=== PATIENT | female | born 2005 | race Caucasian/White ===

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

== ENCOUNTER 2025-01-15 16:33 | Emergency (ER) | payer OTHER ==
--- NOTE | 2025-01-15 17:50 | ED ---
General Adult HPI - General Chief complaint: Fall Stated complaint: fell down stairs Time Seen by Provider: 01/15/25 17:41 Source: patient, RN notes reviewed Mode of arrival: ambulatory Limitations: no limitations - History of Present Illness Initial comments: Patient is a 19-year-old female present to the emergency department with concern for pain to her tailbone. Patient states she was walking on the steps 2 days ago and fell onto her tailbone. Patient has had discomfort there since that time. No head injury or loss of consciousness. No other head or neck discomfort. No weakness. No loss of sensation. No incontinence or retention of bowel or bladder. Patient states pain is the worst when she tries to sit on her tailbone. Patient denies possible . - Related Data Previous Rx's Medication Instructions Recorded Sulfamethox-Tmp 200-40Mg/5Ml 13.5 ml PO Q12HR 14 Days ml 10/05/14 [Bactrim Oral Susp] Allergies Allergy/AdvReac Type Severity Reaction Status Date / Time No Known Allergies Allergy Verified 01/15/25 17:37 Review of Systems ROS Statement: Those systems with pertinent positive or pertinent negative responses have been documented in the HPI. ROS Other: All systems not noted in ROS Statement are negative. Constitutional: Denies: fever Eyes: Denies: as per HPI ENT: Denies: throat pain Respiratory: Denies: dyspnea Cardiovascular: Denies: chest pain Gastrointestinal: Denies: abdominal pain Past Medical History Past Medical History: No Reported History History of Any Multi-Drug Resistant Organisms: None Reported Past Surgical History: Hernia Repair Past Psychological History: No Psychological Hx Reported Smoking Status: Never smoker Past Alcohol Use History: None Reported Past Drug Use History: None Reported General Exam Limitations: no limitations General appearance: alert, in no apparent distress Head exam: Present: atraumatic Eye exam: Present: normal appearance Neck exam: Present: normal inspection. Absent: tenderness Respiratory exam: Present: normal lung sounds bilaterally Cardiovascular Exam: Present: regular rate, normal rhythm GI/Abdominal exam: Present: soft. Absent: tenderness Extremities exam: Present: normal inspection, full ROM. Absent: tenderness Back exam: Present: tenderness (Lower sacral region) Neurological exam: Present: alert. Absent: motor sensory deficit Psychiatric exam: Present: normal affect, normal mood Skin exam: Present: normal color Course Vital Signs 01/15/25 17:34 Temperature 97.8 F Pulse Rate 98 Respiratory 18 Rate Blood Pressure 176/76 O2 Sat by Pulse 99 Oximetry Medical Decision Making - Medical Decision Making Was pt. sent in by a medical professional or institution (, HERRERA, DIRECTOR MARKET RESEARCH, urgent care, hospital, or retirement...) When possible be specific @ -No Did you speak to anyone other than the patient for history (EMS, parent, family, police, friend...)? What history was obtained from this source @ -No Did you review nursing and triage notes (agree or disagree)? Why? @ -I reviewed and agree with nursing and triage notes Were old charts reviewed (outside hosp., previous admission, EMS record, old EKG, old radiological studies, urgent care reports/EKG's, retirement records)? Report findings @ -No old charts were reviewed Differential Diagnosis (chest pain, altered mental status, abdominal pain women, abdominal pain men, vaginal bleeding, weakness, fever, dyspnea, syncope, hea dache, dizziness, GI bleed, back pain, seizure, CVA, palpatations, mental health, musculoskeletal)? @ -Differential Musculoskeletal Muscular strain, contusion, ligament sprain, fracture, arthritis, septic arthritis, bursitis, cellulitis, muscle spasm, nerve compression, DVT, arterial occlusion, herpes zoster, electrolyte abnormality, tumor.... This is not meant to be in all inclusive list EKG interpreted by me (3pts min.). @ -As above X-rays interpreted by me (1pt min.). @ -Sacral x-ray without definitive displaced fracture CT interpreted by me (1pt min.). @ -None done U/S interpreted by me (1pt. min.). @ -None done What testing was considered but not performed or refused? (CT, X-rays, U/S, labs)? Why? @ -None What meds were considered but not given or refused? Why? @ -None Did you discuss the management of the patient with other professionals (professionals i.e. HERRERA Bull, DIRECTOR MARKET RESEARCH, lab, RT, psych nurse, social worker delinquency prevention, steam box operator, teacher, aviation ordnance officer, case planner)? Give summary @ -No Was smoking cessation discussed for >3mins.? @ -No Was critical care preformed (if so, how long)? @ -No Were there social determinants of health that impacted care today? How? (Homelessness, low income, unemployed, alcoholism, drug addiction, transportation, low edu. Level, literacy, decrease access to med. care, half-way, rehab)? @ -No Was there de-escalation of care discussed even if they declined (Discuss DNR or withdrawal of care, Hospice)? DNR status @ -No What co-morbidities impacted this encounter? (DM, HTN, Smoking, COPD, CAD, Cancer, CVA, ARF, Chemo, Hep., AIDS, mental health diagnosis, sleep apnea, morbid obesity)? @ -None Was patient admitted / discharged? Hospital course, mention meds given and route, prescriptions, significant lab abnormalities, going to OR and other pertinent info. @ -Patient presents with fall and sacral pain. No definitive fracture on x- ray. Patient reevaluated and updated. Undiagnosed new problem with uncertain prognosis? @ -No Drug Therapy requiring intensive monitoring for toxicity (Heparin, Nitro, Insulin, Cardizem)? @ -No Were any procedures done? @ -No Diagnosis/symptom? @ -Sacral contusion Acute, or Chronic, or Acute on Chronic? @ -Acute Uncomplicated (without systemic symptoms) or Complicated (systemic symptoms)? @ -Default Side effects of treatment? @ -No Exacerbation, Progression, or Severe Exacerbation? @ -No Poses a threat to life or bodily function? How? (Chest pain, USA, DC, pneumonia, PE, COPD, DKA, ARF, appy, cholecystitis, CVA, Diverticulitis, Homicidal, Suicidal, threat to staff... and all critical care pts) @ -No Disposition Clinical Impression: Sacral contusion Disposition: HOME SELF-CARE Condition: Stable Instructions (If sedation given, give patient instructions): Sacral Fracture (ED) Additional Instructions: [id number] Tylenol or Motrin as needed. Use inflatable doughnut to sit on. Ice to affected area. Please follow-up with primary care physician in the next couple of days for recheck. Return for increased pain, weakness, loss of control of bowel or bladder, worsening symptoms or other concerns. Is patient prescribed a controlled substance at d/c from ED?: No Referrals: Reji Lockwood MD [Primary Care Provider] - 1-2 days Time of Disposition: 19:15
--- NOTE | 2025-01-15 18:09 | XR ---
EXAMINATION TYPE: XR sacrum coccyx DATE OF EXAM: 01/15/2025 6:00 PM COMPARISON: CT abdomen and pelvis 2016 CLINICAL INDICATION: Female, 19 years old with history of fall; PHH, pain TECHNIQUE: XR sacrum coccyx, examined in frontal and lateral projections. FINDINGS: There is no evidence of acute displaced fracture in the sacrum or coccyx. Sacral alar maint ained bilaterally. There is no soft tissue abnormality. No abnormal calcifications are present. IMPRESSION: No acute displaced fracture in sacrum or coccyx. [facility], , 01/15/2025 6:06 PM
[2025-01-15] MEDS: ACET/COD 300 MG/30 MG STARTER PACK 6 TAB BTL PO STA (19:39)
[2025-01-15] MEDS: KETOROLAC 15 MG/ML 1 ML VIAL IM STA (19:39)
[2025-01-15 19:45] VITALS: BP 132/74; PULSE 75; RESP 16; TEMP 98.6
== END 2025-01-15 19:45 | disposition home or self-care (01) ==
LOC: EC 16:33
DX: S30.0XXA Contusion of lower back and pelvis, initial encounter (principal); W10.8XXA Fall (on) (from) other stairs and steps, initial encounter
CPT/HCPCS: 72220; 99283; 96372; J1885

== ENCOUNTER 2025-01-19 13:42 | Emergency (ER) | payer OTHER ==
--- NOTE | 2025-01-19 14:09 | ED ---
Chest Pain HPI - General Source: patient, RN notes reviewed Mode of arrival: ambulatory Limitations: no limitations <Leticia Noriega - Last Filed: 01/19/25 14:07> - General Source: patient, RN notes reviewed, old records reviewed Mode of arrival: ambulatory Limitations: no limitations - History of Present Illness MD Complaint: chest pain -: days(s) Onset: during rest Pain Location: substernal, left chest Pain Radiation: none Severity: mild Severity scale (1-10): 3 Quality: tightness Consistency: intermittent Improves With: nothing Worsens With: nothing Anginal Symptoms: dyspnea Other Symptoms: palpitations Treatments Prior to Arrival: none <Stephen Marie - Last Filed: 01/19/25 18:47> - General Stated Complaint: Chest pain,weakness Time Seen by Provider: 01/19/25 14:08 - History of Present Illness Initial Comments: Quick note: 19-year-old female with a past medical history significant of focal segmental glomerulosclerosis presenting the ER for evaluation of chest pain. Patient states she was recently started on steroids 60 mg by nephrology. She states today she started to feel her pulse in her neck and chest pain. She reports her face feels red and hot. She also reports being hypertensive at home. Mild shortness of breath. (Leticia Noriega) This is a 19 female to the ER for evaluation. Patient has history of renal disease coming in for chest pain today. Patient is newly on steroids for kidney disease and elevated blood pressures at home but mainly concern is chest pain with occasional shortness of breath no exertional dyspnea no recent fevers cough or congestion no other complaints (Stephen Marie) - Related Data Previous Rx's Medication Instructions Recorded Sulfamethox-Tmp 200-40Mg/5Ml 13.5 ml PO Q12HR 14 Days ml 10/05/14 [Bactrim Oral Susp] Allergies Allergy/AdvReac Type Severity Reaction Status Date / Time No Known Allergies Allergy Verified 01/19/25 14:52 Review of Systems ROS Other: All systems not noted in ROS Statement are negative. <Leticia Noriega - Last Filed: 01/19/25 14:07> ROS Other: All systems not noted in ROS Statement are negative. <Stephen Marie - Last Filed: 01/19/25 18:47> ROS Statement: Those systems with pertinent positive or pertinent negative responses have been documented in the HPI. Past Medical History Past Medical History: No Reported History History of Any Multi-Drug Resistant Organisms: None Reported Past Surgical History: Hernia Repair Past Psychological History: No Psychological Hx Reported Smoking Status: Never smoker Past Alcohol Use History: None Reported Past Drug Use History: None Reported <Leticia Noriega - Last Filed: 01/19/25 14:07> General Exam <Leticia Noriega - Last Filed: 01/19/25 14:07> General appearance: alert, in no apparent distress Head exam: Present: atraumatic, normocephalic, normal inspection Eye exam: Present: normal appearance, PERRL, EOMI. Absent: scleral icterus, conjunctival injection, periorbital swelling ENT exam: Present: normal exam, mucous membranes moist Neck exam: Present: normal inspection. Absent: tenderness, meningismus, lymphadenopathy Respiratory exam: Present: normal lung sounds bilaterally. Absent: respiratory distress, wheezes, rales, rhonchi, stridor Cardiovascular Exam: Present: regular rate, normal rhythm, normal heart sounds. Absent: systolic murmur, diastolic murmur, rubs, gallop, clicks GI/Abdominal exam: Present: soft, normal bowel sounds. Absent: distended, tenderness, guarding, rebound, rigid Extremities exam: Present: normal inspection, full ROM, normal capillary refill. Absent: tenderness, pedal edema, joint swelling, calf tenderness Back exam: Present: normal inspection Neurological exam: Present: alert, oriented X3, CN II-XII intact Psychiatric exam: Present: normal affect, normal mood Skin exam: Present: warm, dry, intact, normal color. Absent: rash <Stephen Marie - Last Filed: 01/19/25 18:47> - General Exam Comments Initial Comments: Visual Physical Exam Vital signs reviewed General: Well-appearing, nontoxic, no acute distress. Head: Normocephalic, atraumatic Eyes: PERRLA, EOMI ENT: Airway patent Chest: Nonlabored breathing Skin: No visual rash, normal skin tone Neuro: Alert and oriented 3 Musculoskeletal: No gross abnormalities (Leticia Noriega) Course <Stephen Marie - Last Filed: 01/19/25 18:47> Vital Signs 01/19/25 01/19/25 14:00 18:01 Temperature 98.1 F Pulse Rate 89 74 Respiratory 17 16 Rate Blood Pressure 146/87 124/72 O2 Sat by Pulse 100 99 Oximetry - Reevaluation(s) Reevaluation #1: 01/19/25 18:46 Medical records reviewed (Stephen Marie) Reevaluation #2: 01/19/25 18:46 Patient symptoms unchanged (Stephen Marie) Reevaluation #3: 01/19/25 18:46 Patient informed of results questions answered (Stephen Marie) Reevaluation #4: Was pt. sent in by a medical professional or institution (, HERRERA, RING CONDUCTOR, urgent care, hospital, or skilled nursing...) When possible be specific @ -no Did you speak to anyone other than the patient for history (EMS, parent, family, police, friend...)? What history was obtained from this source @ -no Did you review nursing and triage notes (agree or disagree)? Why? @ -agree Are old charts reviewed (outside hosp., previous admission, EMS record, old EKG, old radiological studies, urgent care reports/EKG's, skilled nursing records)? Re port findings @ -yes Differential Diagnosis (chest pain, altered mental status, abdominal pain women, abdominal pain men, vaginal bleeding, weakness, fever, dyspnea, syncope, headache, dizziness, GI bleed, back pain, seizure, CVA, palpatations, mental health, musculoskeletal)? @ -prior EKG interpreted by me (3pts min.). @ -yes X-rays interpreted by me (1pt min.). @ -yes negative for acute disease CT interpreted by me (1pt min.). @ -no U/S interpreted by me (1pt. min.). @ -no What testing was considered but not performed or refused? (CT, X-rays, U/S, labs)? Why? @ -none What meds were considered but not given or refused? Why? @ -none Did you discuss the management of the patient with other professionals (professionals i.e. HERRERA Bull, RING CONDUCTOR, lab, RT, psych nurse, social service technician, battery checker, teacher, loan officer assistant, case finisher)? Give summary @ -no Was smoking cessation discussed for >3mins.? @ -no Was critical care preformed (if so, how long)? @ -no Were there social determinants of health that impacted care today? How? (Homelessness, low income, unemployed, alcoholism, drug addiction, transportation, low edu. Level, literacy, decrease access to med. care, residential, rehab)? @ -none Was there de-escalation of care discussed even if they declined (Discuss DNR or withdrawal of care, Hospice)? DNR status @ -no What co-morbidities impacted this encounter? (DM, HTN, Smoking, COPD, CAD, Cancer, CVA, ARF, Chemo, Hep., AIDS, mental health diagnosis, sleep apnea, morbid obesity)? @ -none Was patient admitted / discharged? Hospital course, mention meds given and route, prescriptions, significant lab abnormalities, going to OR and other pertinent info. @ - Undiagnosed new problem with uncertain prognosis? @ -no Drug Therapy requiring intensive monitoring for toxicity (Heparin, Nitro, Insulin, Cardizem)? @ -no Were any procedures done? @ -no Diagnosis/symptom? @ - Acute, or Chronic, or Acute on Chronic? @ -Acute Uncomplicated (without systemic symptoms) or Complicated (systemic symptoms)? @ -Complicated Side effects of treatment? @ -no Exacerbation, Progression, or Severe Exacerbation? @ -exacerbation Poses a threat to life or bodily function? How? (Chest pain, USA, CT, pneumonia, PE, COPD, DKA, ARF, appy, cholecystitis, CVA, Diverticulitis, Homicidal, Suicidal, threat to staff... and all critical care pts) @ -yes (Stephen Marie) Reevaluation #5: Differential Chest Pain: Stable Angina, Unstable Angina, STEMI, NSTEMI Aortic Dissection, Pneumothorax, Musculoskeletal, Esophageal Spasm GERD, Cholecystitis, Pancreatitis, Zoster, this is not meant to be an all-inclusive list. (Stephen Marie) Chest Pain MDM <Leticia Noriega - Last Filed: 01/19/25 14:07> <Stephen Marie - Last Filed: 01/19/25 18:47> - MDM I performed the quick note portion of this chart. Electronically signed by Leticia Noriega PA-C (Leticia Noriega) 19 female to ER for evaluation of chest pain today. Patient has mildly worsening acute kidney injury will follow-up with neurologist as previously scheduled. Patient has no cause of chest pain found here in the ER and can be discharged (Stephen Marie) Disposition <Leticia Noriega - Last Filed: 01/19/25 14:07> Is patient prescribed a controlled substance at d/c from ED?: No Time of Disposition: 17:45 <Stephen Marie - Last Filed: 01/19/25 18:47> Clinical Impression: Chest pain, JERARDO (acute kidney injury) Disposition: HOME SELF-CARE Condition: Good Instructions (If sedation given, give patient instructions): Chest Pain (ED) Referrals: Tony Smith Jr, [Primary Care Provider] - 1-2 days
[2025-01-19 14:14] LABS: Basophils % (A) 0 %; Eosinophils % (A) 1 %; HCT 40.1 % (34.0-46.0); HGB 12.9 gm/dL (11.4-16.0); Lymphocytes # (A) 0.4 k/uL (1.0-4.8); Lymphocytes % (A) 5 %; MCH 28.3 pg (25.0-35.0); MCHC 32.2 g/dL (31.0-37.0); MCV 87.9 fL (80.0-100.0); Mean Platelet Volume 7.3; Monocytes # (A) 0.1 k/uL (0-1.0); Monocytes % (A) 1 %; Neutrophils # (A) 7.1 k/uL (1.3-7.7); Neutrophils % (A) 94 %; Platelet Count 258 k/uL (150-450); RBC 4.57 m/uL (3.80-5.40); WBC 7.6 k/uL (4.0-11.0)
[2025-01-19 14:23] LABS: ALT 20 U/L (4-34); AST 18 U/L (14-36); African American GFR (CKD) 56 (>60 ml/min/1.73 sqM); Albumin 3.6 g/dL (3.5-5.0); Alkaline Phosphatase 58 U/L (38-126); Anion Gap 9 mmol/L; Blood Urea Nitrogen 25 mg/dL (7-17); Carbon Dioxide 22 mmol/L (22-30); Chloride 104 mmol/L (98-107); Glucose 180 mg/dL (74-99); Magnesium 1.5 mg/dL (1.6-2.3); Non-African American GFR(CKD) 49 (>60 ml/min/1.73 sqM); Potassium 4.3 mmol/L (3.5-5.1); Sodium 135 mmol/L (137-145); Total Bilirubin 0.4 mg/dL (0.2-1.3); Total Protein 6.1 g/dL (6.3-8.2)
[2025-01-19 14:25] LABS: INR 0.9 (<1.2); Partial Thromboplastin Time 22.5 sec (22.0-30.0); Prothrombin Time 9.8 sec (10.0-12.5)
--- NOTE | 2025-01-19 14:31 | XR ---
EXAMINATION TYPE: XR chest 2V DATE OF EXAM: 01/19/2025 2:28 PM COMPARISON: None. CLINICAL INDICATION: Female, 19 years old with history of Chest Pain, TECHNIQUE: Frontal and lateral views of the chest are obtained. FINDINGS: There is no focal air space opacity, pleural effusion, or pneumothorax seen. The cardiac silhouette size is within normal limits. The osseous structures are intact. IMPRESSION: No acute cardiopulmonary process. [facility], , 01/19/2025 2:28 PM
[2025-01-19 14:52] VITALS: TEMP 98.1
[2025-01-19 18:03] VITALS: BP 124/72; PULSE 74; RESP 16
== END 2025-01-19 18:03 | disposition home or self-care (01) ==
LOC: EC 13:42
DX: R07.89 Other chest pain (principal); N17.9 Acute kidney failure, unspecified
CPT/HCPCS: 36415; 71046; 80053; 83735; 84484; 85025; 85610; 85730; 93005; 99285